=== PATIENT | male | born 2000 | race Two or more races ===

== ENCOUNTER 2018-12-10 10:04 | Emergency (ER) | payer MEDICAID ==
[~2018-12-10] VITALS: Ht 175.3 cm; Wt 64.9 kg
[~2018-12-10 10:04] MED LIST: AMOXICILLIN500 MG ORAL; AZITHROMYCIN250 MG ORAL; CHLOR-TRIMETON4 MG PO; CORTISPORIN EAR10 ML LEFT EAR; CORTISPORIN EAR10 ML OTIC; IBUPROFEN600 MG ORAL; NKM; PSEUDOEPHEDRINE30 MG PO
[2018-12-10 10:15] VITALS: BP 133/70
--- NOTE | 2018-12-10 10:29 | NUR ---
ED Nurse Note: PT WALKED IN TO ER TODAY FROM HOME. AOX4. PT C/O RASH AT TIP OF PENIS ALONG WITH PAINFUL URINATION X YESTERDAY. PT ALSO STATES HE HAS HEMATURIA X YESTERDAY. PT DENIES ANY PENILE DISCHARGE OR BLEEDING. PT DENIES ANY PAIN OR ITCHING.
[2018-12-10] MEDS ORDERED: Azithromycin 250mg tab ORAL ONE (10:45)
[2018-12-10] MEDS ORDERED: Lidocaine 1% MPF 10mg/ml 5ml INJ ONE (10:45)
[2018-12-10 10:58] LABS: APPEARANCE,URINE SLIGHTLY CLOUDY; BILIRUBIN, URINE NEGATIVE (NEGATIVE); GLUCOSE, URINE (UA) NEGATIVE (NEGATIVE); KETONES,URINE 1+ (NEGATIVE); LEUKOCYTE ESTERASE ,URINE 3+ (NEGATIVE); NITRITE,URINE NEGATIVE (NEGATIVE); PH,URINE 5 (4.5-8.0); PROTEIN,URINE 2+ (NEGATIVE); UROBILINOGEN,URINE 1 MG/DL (0.0-1.0)
[2018-12-10 11:12] LABS: COLOR,URINE YELLOW
--- NOTE | 2018-12-10 11:18 | Emergency Room Report ---
History of Present Illness General Chief Complaint: Male Urogenital Problems Source: Patient, Medical Record Present Illness HPI 1 week ago patient had unprotected sex. He started having dysuria for several days and also possibly some hematuria. His been treated for STD in the past. He denies HIV. He denies throat pain, joint pain or skin rashes. He denies fevers or chills. There is no nausea, vomiting diarrhea or change in bowels. Allergies: Coded Allergies: No Known Allergies (Unverified , 01/30/16) Patient History Past Medical History: see triage record Social History: Denies: smoking Social History Narrative With mom Reviewed Nursing Documentation: PMH: Agreed; PSxH: Agreed Nursing Documentation-PMH Hx Neurological Problems: Yes - ADHD Review of Systems All Other Systems: negative except mentioned in HPI Physical Exam Vital Signs Date Time Temp Pulse Resp B/P (MAP) Pulse Ox O2 Delivery O2 Flow Rate FiO2 12/10/18 10:09 98.4 76 18 133/70 98 Room Air Sp02 EP Interpretation: reviewed, normal General Appearance: well appearing, no apparent distress, GCS 15 Head: normocephalic, atraumatic Eyes: bilateral eye normal inspection, bilateral eye PERRL ENT: hearing grossly normal, normal voice, moist mucus membranes Neck: full range of motion, supple Respiratory: lungs clear, no respiratory distress, speaking full sentences Cardiovascular #1: regular rate, rhythm Cardiovascular #2: 2+ radial (R) Gastrointestinal: normal inspection, scaphoid Genitourinary: no CVA tenderness, scrotum normal, other - Uncircumcised with mild inflammation and foreskin no obvious discharge Musculoskeletal: no calf tenderness Neurologic: alert, oriented x3, normal gait, grossly normal Psychiatric: mood/affect normal Skin: no rash Medical Decision Making Diagnostic Impression: Primary Impression: STD (male) ER Course Patient with dysuria. Differential includes UTI, chlamydia, gonorrhea amongst others. The patient will be treated with Rocephin and azithromycin. Urinalysis will be checked. Urinalysis with pyuria and some red cells. Discussed results with patient and the need for protected sex and further follow -up for other STD testing. Patient improved. Patient stable for outpatient observation and treatment. Laboratory Tests Test 12/10/18 10:30 Urine Color Yellow Urine Appearance Slightly cloudy Urine pH 5 (4.5-8.0) Urine Specific [place] 1.020 (1.005-1.035) Urine Protein 2+ (NEGATIVE) H Urine Glucose (UA) Negative (NEGATIVE) Urine Ketones 1+ (NEGATIVE) H Urine Blood 5+ (NEGATIVE) H Urine Nitrite Negative (NEGATIVE) Urine Bilirubin Negative (NEGATIVE) Urine Urobilinogen 1 MG/DL (0.0-1.0) H Urine Leukocyte Esterase 3+ (NEGATIVE) H Urine RBC 60-80 /HPF (0 - 0) H Urine WBC 60-80 /HPF (0 - 0) H Urine Squamous Epithelial Cells Occasional /LPF Urine Bacteria Occasional /HPF (NONE) Chlamydia trachomatis RNA Pending Neisseria gonorrhoeae RNA Pending Last Vital Signs Date Time Temp Pulse Resp B/P (MAP) Pulse Ox O2 Delivery O2 Flow Rate FiO2 12/10/18 11:21 98.3 72 16 126/74 99 Room Air Status: improved Disposition: HOME, SELF-CARE Condition: Improved Referrals: NOT CHOSEN IPA/,REFERRING (PCP) Quinton Pizano MD Dec 10, 2018 11:18
[2018-12-10 11:21] VITALS: BP 126/74
--- NOTE | 2018-12-10 11:22 | NUR ---
ED Nurse Note: PT SITTING PEACEFULLY IN BED IN NAD. AOX4. DISCHARGE PAPERWORK EXPLAINED TO PT. PT VERBALIZES UNDERSTANDING AND ALL QUESTIONS ANSWERED. DISCHARGE PAPERWORK GIVEN TO PT AND ID WRISTBAND REMOVED. PT WALKED OUT OF ER WITH STEADY GAIT AND ALL BELONGINGS.
== END 2018-12-10 11:23 | disposition home or self-care (01) ==
LOC: EMR 10:20
DX: A64 Unspecified sexually transmitted disease (principal); F90.9 Attention-deficit hyperactivity disorder, unspecified type
CPT/HCPCS: 81003; 87086; 87491; 87590; 96372; 99283; J0696